=== PATIENT | female | born 1975 | race Caucasian/White ===

== ENCOUNTER 2019-10-09 04:15 | Emergency (ER) | payer BC ==
[~2019-10-09] VITALS: Ht 160 cm; Wt 69.4 kg
[2019-10-09 04:45] LABS: URINE BILIRUBIN NEGATIVE (Negative); URINE BLOOD NEGATIVE (Negative); URINE CLARITY CLEAR; URINE COLOR YELLOW; URINE GLUCOSE-RANDOM NEGATIVE (Negative); URINE KETONES TRACE (Negative); URINE LEUKOCYTES-REFLEX TRACE (Negative); URINE NITRITE-REFLEX NEGATIVE (Negative); URINE PROTEIN NEGATIVE (Negative); URINE SPECIFIC GRAVITY 1.025 (1.005-1.030); URINE UROBILINOGEN 0.2 E.U./dl (0.2-1.0)
[2019-10-09] MEDS ORDERED: SPIRONOLACTONE25 MG PO (04:50)
[2019-10-09 04:54] LABS: CALCIUM 8.8 mg/dL (8.5-10.1); CREATININE 1.1 mg/dL (0.6-1.3); POTASSIUM 3.6 mmol/L (3.5-5.1)
[2019-10-09 04:55] LABS: ABSOLUTE LYMPHOCYTES 1.3 thou/uL (0.8-5.3); ABSOLUTE MONOCYTES 0.3 thou/uL (0.0-1.2); ABSOLUTE NEUTROPHILS 4.3 thou/uL (1.6-8.1); BASOPHILS 0.4 %; EOSINOPHILS 0.4 %; HEMATOCRIT 40.9 % (37.0-47.0); HEMOGLOBIN 14.2 gm/dL (12.0-15.0); LYMPHOCYTES 21.8 %; MCH 29.8 pg (26.0-34.0); MCHC 34.8 g/dL (28.0-37.0); MCV 85.8 fL (80.0-100.0); MPV 7.4 fl. (7.2-11.1); NUCLEATED RBCS 0 /100WBC; PLATELET COUNT* 248 thou/uL (150-400); POLYS 72.4 %; RBC 4.76 mil/uL (4.20-5.00); RDW-CV 11.9 % (10.5-14.5); WBC 5.9 thou/uL (4.0-11.0)
[2019-10-09 05:16] LABS: CASTS None Seen /LPF (None Seen); SQUAMOUS >10 Many /LPF (0-3); URINE RBC 0-2 Rare /HPF (0-2); URINE WBC-REFLEX 6-15 Few /HPF (0-5)
[2019-10-09 05:17] LABS: CRYSTALS None Seen /LPF (None Seen)
[2019-10-09] MEDS ORDERED: ZOFRAN ODT4 MG PO ×2 (05:43→05:47)
[2019-10-09] MEDS ORDERED: HYDROCODON-ACE1 EAC8 PO (05:43)
[2019-10-09] MEDS ORDERED: BACTRIM DS TAB1 EACH PO (05:43)
[2019-10-09] MEDS ORDERED: MACROBID 100 M100 M1 PO (05:45)
[2019-10-09 07:38] VITALS: BP 138/71
== END 2019-10-09 07:42 | disposition home or self-care (01) ==
LOC: M.ERS 04:15
PROVIDERS: Emergency Medicine
DX: N20.1 Calculus of ureter (principal); R11.2 Nausea with vomiting, unspecified

== ENCOUNTER 2019-10-12 10:10 | Emergency (ER) | payer BC ==
[~2019-10-12] VITALS: Ht 160 cm; Wt 68.0 kg
[~2019-10-12 10:10] MED LIST: BACTRIM DS TAB1 EACH PO; HYDROCODON-ACE1 EAC8 PO; MACROBID 100 M100 M1 PO; SPIRONOLACTONE25 MG PO; ZOFRAN ODT4 MG PO
[2019-10-12 11:29] LABS: URINE BLOOD NEGATIVE (Negative); URINE CLARITY CLEAR; URINE COLOR YELLOW; URINE GLUCOSE-RANDOM NEGATIVE (Negative); URINE LEUKOCYTES-REFLEX NEGATIVE (Negative); URINE PROTEIN 1+ (Negative); URINE SPECIFIC GRAVITY >= 1.030 (1.005-1.030); URINE UROBILINOGEN 0.2 E.U./dl (0.2-1.0)
[2019-10-12 11:31] LABS: ICTOTEST (BILI CONFIRMATORY) Negative (Negative); URINE BILIRUBIN 2+ (Negative); URINE KETONES 3+ (Negative); URINE NITRITE-REFLEX POSITIVE (Negative)
[2019-10-12 11:45] LABS: ABSOLUTE LYMPHOCYTES 0.5 thou/uL (0.8-5.3); ABSOLUTE MONOCYTES 0.7 thou/uL (0.0-1.2); ABSOLUTE NEUTROPHILS 5.7 thou/uL (1.6-8.1); BASOPHILS 0.3 %; EOSINOPHILS 0.1 %; HEMATOCRIT 38.5 % (37.0-47.0); HEMOGLOBIN 13.5 gm/dL (12.0-15.0); LYMPHOCYTES 7.7 %; MCH 30.1 pg (26.0-34.0); MONOCYTES 9.6 %; MPV 7.8 fl. (7.2-11.1); NUCLEATED RBCS 0 /100WBC; PLATELET COUNT* 213 thou/uL (150-400); POLYS 82.3 %; RBC 4.47 mil/uL (4.20-5.00); RDW-CV 12.2 % (10.5-14.5); WBC 6.9 thou/uL (4.0-11.0)
[2019-10-12 11:55] LABS: SQUAMOUS >10 Many /LPF (0-3)
[2019-10-12 11:56] LABS: CASTS None Seen /LPF (None Seen); CRYSTALS None Seen /LPF (None Seen); MUCUS 0-3 Light strn/LPF (None Seen); URINE RBC 0-2 Rare /HPF (0-2); URINE WBC-REFLEX 0-5 Rare /HPF (0-5); YEAST-REFLEX Present (None Seen)
[2019-10-12 11:59] LABS: CALCIUM 8.6 mg/dL (8.5-10.1); CREATININE 1.2 mg/dL (0.6-1.3); POTASSIUM 4.5 mmol/L (3.5-5.1)
[2019-10-12 12:04] LABS: ALBUMIN 3.6 g/dL (3.4-5.0); TOTAL BILIRUBIN 0.7 mg/dL (<0.1-1.0); TOTAL PROTEIN 7.8 g/dL (6.4-8.2)
[2019-10-12] MEDS ORDERED: TORADOL 10 MG T10 MG PO (15:31)
[2019-10-12] MEDS ORDERED: PHENERGAN 25 MG25 M1 PO (15:31)
[2019-10-12] MEDS ORDERED: PROMS25 WY RECTAL (15:31)
[2019-10-12 16:00] VITALS: BP 117/75
== END 2019-10-12 16:00 | disposition home or self-care (01) ==
LOC: M.ERS 10:10
PROVIDERS: Personal Emergency Response Attendant
DX: N20.0 Calculus of kidney (principal); R11.2 Nausea with vomiting, unspecified; N39.0 Urinary tract infection, site not specified